=== PATIENT | female | born 1965 | race Caucasian/White ===

== ENCOUNTER → 2017-03-07 | Outpatient (CLI) | payer BC ==
[~2017-03-07] MED LIST: GADAVIST IV PRN; GLAT1INJ INJ; SERT25TA PO
[2017-03-07 14:46] LABS: BASO % 0.4 %; BASO ABS # 0.03 K/uL (0-0.2); COMPLETE YES; EOS % 1.4 %; IG% 0.1 %; LYMPH % 26.2 %; LYMPH ABS # 2.02 K/uL (1.2-3.4); MEAN CELL VOLUME 87.2 fL (80-100); MEAN CORPUSCULAR HEMOGLOBIN 28.6 pg (25-34); MEAN CORPUSCULAR HGB CONC 32.8 g/dl (32-36); MEAN PLATELET VOLUME 9.4 fL (7.4-10.4); MONO % 7.7 %; NEUT % 64.2 %; PLATELET COUNT 285 K/uL (130-400); RED BLOOD COUNT 4.93 M/uL (4.2-5.4); WHITE BLOOD COUNT 7.71 K/uL (4.8-10.8)
[2017-03-07 15:20] LABS: ALT/SGPT 26 U/L (12-78); AST/SGOT 26 U/L (15-37); BLOOD UREA NITROGEN 19 mg/dl (7-18); BUN/CREATININE RATIO 19.6 (10-20); CALCIUM 9.2 mg/dl (8.5-10.1); CARBON DIOXIDE 30 mmol/L (21-32); CHLORIDE 105 mmol/L (98-107); CREATININE 0.97 mg/dl (0.60-1.20); GLUCOSE 77 mg/dl (70-99); POTASSIUM 3.9 mmol/L (3.5-5.1); SODIUM 140 mmol/L (136-145)
[2017-03-07 15:30] LABS: ALKALINE PHOSPHATASE 90 U/L (45-117)
--- NOTE | 2017-03-07 17:31 | DIAGNOSTIC IMAGING REPORT ---
MRI OF THE THORACIC SPINE WITH AND WITHOUT CONTRAST CLINICAL HISTORY: Multiple sclerosis. Left lower extremity numbness and tingling. Urinary incontinence. COMPARISON STUDY: MRI of the thoracic spine June 17, 2009. TECHNIQUE: Utilizing a 1.5 Linda magnet and dedicated coil, multiplanar, multi echo imaging of the thoracic spine was performed pre and postcontrast administration. Injection of 8.5 cc of Gadavist IV was uneventful. FINDINGS: Alignment of the thoracic spine is anatomic. Vertebral body heights are maintained. There is no marrow replacement or marrow edema. No intracanalicular mass or fluid collection is present. There is no disc herniation within the thoracic spine. The central canal and neural foramen are patent. Thoracic cord signal and caliber are normal. Paravertebral soft tissues are unremarkable. A 1.7 cm T2 hyperintense enhancing right hepatic lobe lesion is unchanged as MRI of June 17, 2009. IMPRESSION: 1. Normal thoracic cord signal and caliber. No foci of demyelination within the thoracic cord. 2. Patent central canal and neural foramen within the thoracic spine. No disc herniation. 3. 1.7 cm right hepatic lobe lesion which is stable since MRI of June 17, 2009. This is benign given stability and likely reflects a hemangioma. Electronically signed by: Brandon South M.D. 03/07/2017 5:29 PM Dictated Date/Time: 03/07/2017 5:24 PM
--- NOTE | 2017-03-07 17:36 | DIAGNOSTIC IMAGING REPORT ---
MRI OF THE BRAIN COMBO CLINICAL HISTORY: Left-sided foot numbness. Urinary incontinence. Reported history of multiple sclerosis. COMPARISON STUDY: CT of the brain dated 10/25/2015. MRI of the brain from 611 dated 12/09/2012. TECHNIQUE: MRI of the brain was performed utilizing various T1 and T2-weighted sequences in the axial, sagittal, and coronal planes. Contrast-enhanced sequences were acquired following the administration of 8.5 cc of Gadavist. The Examination is performed using the multiple sclerosis protocol. FINDINGS: Brain parenchyma: There are 2 small foci of T2 signal abnormality seen within the right periventricular white matter. The largest is adjacent to the frontal horn and measures 5 mm as seen on coronal high-resolution image #79. There is no associated abnormal enhancement on the postcontrast sequences. There is no hemorrhage or mass effect. There is no restricted diffusion to suggest acute ischemia. No enhancing mass lesion is identified on the postcontrast images. Larsen-white matter differentiation is preserved. No extra-axial fluid collection is seen. The cerebellar tonsils are normal in configuration. Ventricles, sulci, and cisterns: Normal in configuration. Pituitary and sella: Unremarkable. Intracranial vasculature: Normal flow voids are maintained at the skull base. Orbits: The bony orbits are grossly intact. Orbital contents are normal in appearance. Sinuses and mastoids: Clear. Calvarium: Unremarkable. Cervical cord: Partially visualized cervical spinal cord is normal in morphology and signal intensity. IMPRESSION: 1. No acute intracranial abnormality. 2. There are 2 subcentimeter foci of T2 signal abnormality within the right periventricular white matter. These are nonspecific and could represent mild microangiopathic change or could be seen in the setting of a demyelinating process such as multiple sclerosis as per the reported clinical history. There is no abnormal enhancement identified on the postcontrast series. These are unchanged from the 2013 examination. Electronically signed by: Luis Carlos Ma M.D. 03/07/2017 5:34 PM Dictated Date/Time: 03/07/2017 5:28 PM
== END | disposition home or self-care (01) ==
LOC: C.MRI 13:39
PROVIDERS: ATTEND Psychiatry & Neurology Neurology
DX: G35 Multiple sclerosis (principal); R20.0 Anesthesia of skin; R20.2 Paresthesia of skin; R32 Unspecified urinary incontinence; G43.109 Migraine with aura, not intractable, without status migrainosus; R41.3 Other amnesia; M25.50 Pain in unspecified joint; K76.9 Liver disease, unspecified

== ENCOUNTER → 2017-03-14 | Outpatient (CLI) | payer BC ==
[~2017-03-14] MED LIST changes: +ASPI-390 PO; +IBUP-1050 PO; +vitamin d3 PO
--- NOTE | 2017-03-14 17:03 | DIAGNOSTIC IMAGING REPORT ---
MRI CERVICAL SPINE COMBO CLINICAL HISTORY: R32 Urinary [id number] Multiple [id number] Numbness right ring finger TECHNIQUE: Sagittal and axial T1, T2 and STIR images were obtained. Imaging was performed before and after administration of 8.5 cc of intravenous Gadavist. COMPARISON STUDY: Outside MRI dated 06/17/2009 There are no suspicious areas of marrow replacement. No intrinsic cervical cord lesions are visualized. C2-3: There is no evidence of disc bulge or focal herniation. There is no spinal or foraminal stenosis. C3-4: There is no evidence of disc bulge or focal herniation. There is no spinal or foraminal stenosis. C4-5: There are no disc bulges or focal herniations. There is no spinal or foraminal stenosis. C5-6 :There is a mild circumferential disc bulge present. There is minor uncovertebral joint spurring. There is minor bilateral foraminal narrowing. C6-7: There is a mild circumferential disc bulge. There is left-sided uncovertebral joint spurring with minor left-sided foraminal narrowing C7-T1: There is no evidence of disc bulge or focal herniation. There is no evidence of spinal or foraminal stenosis. Postcontrast images reveal no pathologically enhancing lesions. IMPRESSION: 1. No cord lesions identified. No pathologically enhancing masses 2. Mild degenerative changes, most pronounced the C5-6 level. Electronically signed by: Ramon Browning M.D. 03/14/2017 5:01 PM Dictated Date/Time: 03/14/2017 4:57 PM
== END | disposition home or self-care (01) ==
LOC: C.MRI 14:57
PROVIDERS: ATTEND Psychiatry & Neurology Neurology
DX: G35 Multiple sclerosis (principal); R20.0 Anesthesia of skin; R20.2 Paresthesia of skin; R32 Unspecified urinary incontinence; M50.322 Other cervical disc degeneration at C5-C6 level

== ENCOUNTER 2017-03-21 12:52 | Day surgery (SDC) | payer BC ==
[~2017-03-21] VITALS: Ht 175.3 cm; Wt 86.0 kg
[~2017-03-21 12:52] MED LIST changes: -ASPI-390 PO; -GADAVIST IV PRN; -IBUP-1050 PO; -vitamin d3 PO
[2017-03-21 13:00] VITALS: BP 159/83; PULSE 78; TEMP 36.7; O2SAT 94; Ht 175.3 cm; Wt 86.0 kg
[2017-03-21] MEDS ORDERED: ASPI-390 PO (13:08)
[2017-03-21] MEDS ORDERED: IBUP-1050 PO (13:08)
[2017-03-21] MEDS ORDERED: vitamin d3 PO (13:08)
[2017-03-21] MEDS ORDERED: CEFTRIAXONE SOD INJ 2000 MG in DEXTROSE 5% 50ML IV SCH ×4 (14:00)
[2017-03-21] MEDS ORDERED: CEFTRIAXONE SOD INJ 2 GM in DEXTROSE 5% ADD-VANTAGE 50ML 50 ML IV ONE (14:30)
== END 2017-07-11 14:10 | disposition home or self-care (01) ==
LOC: C.MTU 12:52
PROVIDERS: ATTEND Psychiatry & Neurology Neurology
DX: A69.20 Lyme disease, unspecified (principal)

== ENCOUNTER → 2017-04-04 | Outpatient (CLI) | payer BC ==
[2017-04-03 21:41] LABS: BASO % 0.3 %; BASO ABS # 0.02 K/uL (0-0.2); COMPLETE YES; EOS % 1.3 %; HEMATOCRIT 38.9 % (37-47); IG% 0.2 %; LYMPH % 31.5 %; LYMPH ABS # 1.88 K/uL (1.2-3.4); MEAN CELL VOLUME 86.8 fL (80-100); MEAN CORPUSCULAR HEMOGLOBIN 28.3 pg (25-34); MEAN CORPUSCULAR HGB CONC 32.6 g/dl (32-36); MEAN PLATELET VOLUME 9.4 fL (7.4-10.4); MONO % 7.5 %; NEUT % 59.2 %; PLATELET COUNT 234 K/uL (130-400); RED BLOOD COUNT 4.48 M/uL (4.2-5.4); WHITE BLOOD COUNT 5.97 K/uL (4.8-10.8)
[2017-04-03 21:57] LABS: BLOOD UREA NITROGEN 11 mg/dl (7-18); CALCIUM 9.2 mg/dl (8.5-10.1); CARBON DIOXIDE 29 mmol/L (21-32); CHLORIDE 103 mmol/L (98-107); CREATININE 0.75 mg/dl (0.60-1.20); GLUCOSE 107 mg/dl (70-99); POTASSIUM 3.6 mmol/L (3.5-5.1); SODIUM 139 mmol/L (136-145)
[~2017-04-04] MED LIST changes: +ASPI-390 PO; +IBUP-1050 PO; +vitamin d3 PO
== END | disposition home or self-care (01) ==
LOC: C.LABSPEC 14:33
PROVIDERS: ATTEND Psychiatry & Neurology Neurology
DX: A69.20 Lyme disease, unspecified (principal)

== ENCOUNTER → 2017-04-09 | Outpatient (CLI) | payer BC ==
[2017-04-09 20:17] LABS: BASO % 0.5 %; BASO ABS # 0.03 K/uL (0-0.2); COMPLETE YES; EOS % 2.1 %; HEMATOCRIT 41.6 % (37-47); LYMPH % 33.9 %; LYMPH ABS # 2.11 K/uL (1.2-3.4); MEAN CELL VOLUME 86.8 fL (80-100); MEAN CORPUSCULAR HGB CONC 32.2 g/dl (32-36); MEAN PLATELET VOLUME 9.3 fL (7.4-10.4); MONO % 7.1 %; NEUT % 56.4 %; PLATELET COUNT 265 K/uL (130-400); RED BLOOD COUNT 4.79 M/uL (4.2-5.4); WHITE BLOOD COUNT 6.22 K/uL (4.8-10.8)
[2017-04-09 20:44] LABS: BLOOD UREA NITROGEN 27 mg/dl (7-18); BUN/CREATININE RATIO 29.6 (10-20); CALCIUM 9.3 mg/dl (8.5-10.1); CARBON DIOXIDE 27 mmol/L (21-32); CHLORIDE 105 mmol/L (98-107); CREATININE 0.93 mg/dl (0.60-1.20); GLUCOSE 106 mg/dl (70-99); POTASSIUM 4.2 mmol/L (3.5-5.1); SODIUM 141 mmol/L (136-145)
== END | disposition home or self-care (01) ==
LOC: C.LABSPEC 12:07
PROVIDERS: ATTEND Psychiatry & Neurology Neurology
DX: A69.20 Lyme disease, unspecified (principal)

== ENCOUNTER → 2017-04-16 | Outpatient (CLI) | payer BC ==
[2017-04-16 21:12] LABS: HEMATOCRIT 40.8 % (37-47); MEAN CELL VOLUME 86.8 fL (80-100); MEAN CORPUSCULAR HEMOGLOBIN 28.5 pg (25-34); MEAN CORPUSCULAR HGB CONC 32.8 g/dl (32-36); MEAN PLATELET VOLUME 9.5 fL (7.4-10.4); PLATELET COUNT 262 K/uL (130-400); WHITE BLOOD COUNT 5.44 K/uL (4.8-10.8)
[2017-04-16 21:30] LABS: ALT/SGPT 26 U/L (12-78); BLOOD UREA NITROGEN 17 mg/dl (7-18); BUN/CREATININE RATIO 20.8 (10-20); CALCIUM 9.7 mg/dl (8.5-10.1); CARBON DIOXIDE 31 mmol/L (21-32); CHLORIDE 105 mmol/L (98-107); CREATININE 0.81 mg/dl (0.60-1.20); GLUCOSE 85 mg/dl (70-99); POTASSIUM 3.5 mmol/L (3.5-5.1); SODIUM 141 mmol/L (136-145)
[2017-04-16 21:33] LABS: ALB/GLOB RATIO 1.1 (0.9-2); ALKALINE PHOSPHATASE 91 U/L (45-117); AST/SGOT 30 U/L (15-37)
[2017-04-17 13:34] LABS: BASO ABS # 0.06 K/uL (0-0.2); COMPLETE YES; EOS % 1.9 %; IG% 0.2 %; LYMPH ABS # 2.17 K/uL (1.2-3.4); MONO % 8.2 %; NEUT % 51.7 %
== END | disposition home or self-care (01) ==
LOC: C.LABSPEC 20:10
PROVIDERS: ATTEND Psychiatry & Neurology Neurology
DX: A69.20 Lyme disease, unspecified (principal)